=== PATIENT | male | born 1970 | race Two or more races ===

== ENCOUNTER 2024-12-15 10:44 | Emergency (ER) | payer SELFPAY ==
[2024-12-15 10:45] VITALS: BMI 31.7
[2024-12-15 11:01] VITALS: BP 171/107; BP 178/102; PULSE 75; RESP 18; TEMP 37; O2SAT 98; BMI 30.9
--- NOTE | 2024-12-15 11:53 | PD.EDEYE ---
ED Eye Problem RME/HPI General Chief complaint: Eye Problems Stated complaint: R EYE PAIN X3 DAYS S/P CLEANING UP METAL Time Seen by Provider: 12/15/24 11:13 Source: patient Arrival date/time: 12/15/24 10:44 Mode of arrival: ambulatory Limitations: no limitations RME / HPI RME / HPI Narrative: Patient is a 54-year-old male with medical history notable for diabetes is in the emerged from concerns for right eye pain. Patient states that he was cleaning some metal tools at home when he felt a small piece of metal get into his eye. He went to clinic clinic provided him with a ointment for his eye and told him to come to the emergency department. Patient denies any blurry vision he does endorse of foreign body sensation. Denies fevers chills headache nausea vomiting. Related Data Previous Rx's ?Medication ?Instructions ?Recorded ciprofloxacin HCl 500 mg tablet 500 mg PO BID #10 tabs 11/14/21 (Cipro) acetaminophen 500 mg tablet 1,000 mg (2 x 500 mg) PO Q6H PRN 07/05/22 (Tylenol Extra Strength) fever or pain #30 tabs ibuprofen 600 mg tablet 600 mg PO Q6H PRN fever or pain 07/05/22 #30 tabs ondansetron 4 mg disintegrating 4 mg PO Q6H PRN nausea and 07/05/22 tablet vomiting #10 tabs erythromycin 5 mg/gram (0.5 %) eye 0.5 inch ophthalmic (eye) QID #3.5 12/15/24 ointment grams Allergies Allergy/AdvReac Type Severity Reaction Status Date / Time No Known Allergies Allergy Verified 12/15/24 10:47 ED Exam General Limitations: Present no limitations General appearance: Present alert and in no apparent distress Head Head exam: Present atraumatic and normocephalic Eye Eye exam: Present other (Right eye with conjunctival injection, globe is intact no evidence of perforation,) ENT ENT exam: Present normal exam and normal oropharynx Neck Neck exam: Present normal inspection and full ROM Chest Chest inspection: Present normal inspection and symmetric chest wall rise Respiratory Respiratory exam: Absent respiratory distress Cardiovascular Cardiovascular exam: Present regular rate Abdominal Exam Abdominal exam: Present soft; Absent distention Extremities Exam Extremities exam: Present normal inspection Neurological Exam Neurological exam: Present alert, oriented X3 and CN II-XII intact Course Quality Measures none Orders Category Date Time Status Erythromycin Op Oint 0.5% Med 12/15/24 12:13 Discontinued 1 gm RIGHT EYE X1 ONE Fluorescein Sodium [Bio-Jodie] Med 12/15/24 11:47 Discontinued 1 mg RIGHT EYE X1 ONE TET,DIP/PERT AC (Adult)-Tdap [Boostrix Adult (Tdap) Med 12/15/24 11:53 Discontinued Vacc] 0.5 ml IMI .ONCE ONE TETRACAINE Op Saima 0.5% [Pontocaine Op Saima 0.5%] Med 12/15/24 11:57 Discontinued 1 drop RIGHT EYE X1 ONE Vital Signs Vital signs: Vital Signs Temperature 98.6 F 12/15/24 11:01 Pulse Rate 75 12/15/24 11:01 Respiratory Rate 18 12/15/24 11:01 Blood Pressure 178/102 H 12/15/24 11:01 Pulse Oximetry (%) 98 12/15/24 11:01 Oxygen Delivery Method Room Air 12/15/24 11:01 Eye MDM Narrative MDM Narrative:: Patient is a 54-year-old male seen emerged part concerns for foreign body sensation of the right eye. Vital signs and exam as above. Concern for foreign body to the right eye, corneal abrasion. No evidence of globe rupture, patient without any visual field deficits, no blurry vision, less likely retinal detachment, no acute ischemic retinopathy among others. Patient without any head pain, no signs of trauma. Ordered tetracaine and fluorescein, will perform Vega lamp assessment patient is already on stomach antibiotics. Patient needs to follow-up with an automotive sales professional as an outpatient this week. Under Vega lamp visualization was able to identify a foreign body punctate approximately the 2 o'clock position on the iris, no evidence of globe rupture. Using a bur was able to remove a punctate black foreign body. Patient also has a corneal abrasion. Patient tolerated procedure well. Provided patient with a formic antibiotic for the eye. Advised patient to apply the antibiotic to the right eye 4 times a day for the next 5 days and to follow-up with an automotive sales professional within the next 1 to 2 days. Patient discharged hemodynamically stable not distressed Patient data External records reviewed:: [facility] previous records Clinical information provided by:: patient Social determinants that could affect healthcare access:: none Patient has the following chronic illnesses:: See MDM How is presenting disease/condition affected by chronic disease/condition?: uneffected by Evaluation data The following diagnostics were reviewed and interpreted by me:: other (specify) Lab and/or radiology exams considered but not ordered:: None Interpretation Summary: See above Medications / Prescriptions Medications or Prescriptions considered but not ordered:: None Medication administrations:: Medication Administration History Discontinued Medications Diphtheria/Tetanus/Acell Pertussis (Diphth,Pertuss(Acell),Tet Vac 0.5 Ml Syr- Adult) 0.5 ml IMi .ONCE ONE Stop: 12/15/24 11:54 Erythromycin (Erythromycin Op Oint 0.5% 1 Gm Packet) 1 gm RIGHT EYE X1 ONE Stop: 12/15/24 12:14 Fluorescein Sodium (Fluorescein Sod 1 Mg Strp) 1 mg RIGHT EYE X1 ONE Stop: 12/15/24 11:48 Tetracaine HCl (Tetracaine Pf Op Saima 0.5% 4 Ml Drpette) 1 drop RIGHT EYE X1 ONE Stop: 12/15/24 11:58 See above Consultations Consultation(s) initiated? (list below): No Diagnosis Eye Problem Differential Diagnosis: corneal abrasion and other Most likely diagnosis given after review of the tests above:: Corneal abrasion, right eye foreign body, Admission Indicated Admission indicated?: not indicated Admission Request Was there a request for admission?: No Disposition Plan Disposition Plan: Discharge Discharge Attestation Discharge Attestation: The patient and all family members were given an opportunity to ask questions and understood the discharge instructions. Discharge instructions specifically effects, indications for sooner follow up or return to the emergency department, and the expected course of current diagnosis. Patient condition: Stable Discharge Plan Plan Patient Disposition: HOME (Self Care) Prescriptions/Referrals Prescriptions/Med Rec: New erythromycin 5 mg/gram (0.5 %) ointment 0.5 inch ophthalmic (eye) QID Qty: 3.5 0RF Rx Instructions: apply to right eye No Action ciprofloxacin HCl [Cipro] 500 mg tablet 500 mg PO BID Qty: 10 0RF ondansetron 4 mg tablet,disintegrating 4 mg PO Q6H PRN (Reason: nausea and vomiting) Qty: 10 0RF ibuprofen 600 mg tablet 600 mg PO Q6H PRN (Reason: fever or pain) Qty: 30 0RF acetaminophen [Tylenol Extra Strength] 500 mg tablet 1,000 mg PO Q6H PRN (Reason: fever or pain) Qty: 30 0RF Problem List Clinical Impression: Abrasion, corneal, Foreign body in eyeball, right Patient/Caregiver Discharge Instructions Education Materials: Corneal Injury Additional Instructions: Por favor hacer bk con un ophthalmologo esta semana. Regresar de inmediato si tiene vista borrosa, peores sintomas o cualquier sintoma de preocupacion. Por favor aplicar el antibiotico ocular 4 veces por alok por los proximos 5 phelan. Print Language: [place] Citizen Stand Alone Forms: Francine Award Info., Patient Portal Info Letter
[2024-12-15] MEDS: DIPHTH,PERTUSS(ACELL),TET VAC 0.5 ML SYR- ADULT IMi (12:19)
[2024-12-15] MEDS: TETRACAINE PF OP SOL 0.5% 4 ML DRPETTE 1 DROP RIGHT EYE (12:20)
[2024-12-15] MEDS: Erythromycin Op Oint 0.5% 1 GM PACKET RIGHT EYE (12:20)
[2024-12-15] MEDS: FLUORESCEIN SOD 1 MG STRP RIGHT EYE (12:20)
== END 2024-12-15 12:29 | disposition home or self-care (01) ==
LOC: SERX 12:14
PROVIDERS: Emergency Provider Emergency Medicine; PCP Family Medicine
DX: T15.01XA Foreign body in cornea, right eye, initial encounter (principal); E11.9 Type 2 diabetes mellitus without complications; Z23 Encounter for immunization; W44.9XXA Unspecified foreign body entering into or through a natural orifice, initial encounter
CPT/HCPCS: 90471; 90715; 99283; A9270